=== PATIENT | female | born 1980 | race Caucasian/White ===

== ENCOUNTER 2019-12-03 19:07 | Emergency (ER) | payer MEDICAID ==
[2019-12-03 19:20] VITALS: BP 110/79
[2019-12-03 19:53] LABS: BASOPHILS % (AUTO) 0.4 %; EOSINOPHILS # (AUTO) 0.1 10^3/uL (0.0-0.7); EOSINOPHILS % (AUTO) 1.2 %; HGB - HEMOGLOBIN 13.7 g/dL (12.0-16.0); LYMPHOCYTES # (AUTO) 4.2 10^3/uL (1.5-3.5); LYMPHOCYTES % (AUTO) 42.4 %; MEAN CORPUSCULAR HEMOGLOBIN 29.7 pg (27.0-31.0); MEAN CORPUSCULAR HGB CONC 33.9 g/dL (32.0-36.0); MEAN CORPUSCULAR VOLUME 87.4 fL (81.0-99.0); MEAN PLATELET VOLUME 9.5 fL (7.9-10.8); MONOCYTES # (AUTO) 0.7 10^3/uL (0.0-1.0); MONOCYTES % (AUTO) 7.1 %; NEUTROPHILS # (AUTO) 4.8 10^3/uL (1.5-6.6); NEUTROPHILS % (AUTO) 48.6 %; PLT - PLATELET COUNT 398 10^3/uL (130-450); RED BLOOD COUNT 4.62 10^6/uL (4.20-5.40); RED CELL DISTRIBUTION WIDTH 13.7 % (12.0-15.0); WHITE BLOOD COUNT 9.8 x10^3/uL (4.8-10.8)
[2019-12-03 20:03] LABS: BILIRUBIN,URINE NEGATIVE (NEGATIVE); GLUCOSE, URINE (UA) NEGATIVE (NEGATIVE); KETONES,URINE (UA) TRACE mg/dL (NEGATIVE); LEUKOCYTE ESTERASE, URINE NEGATIVE (NEGATIVE); NITRITE,URINE NEGATIVE (NEGATIVE); OCCULT BLOOD,URINE MODERATE (NEGATIVE); PH,URINE 6.5 PH (5.0-7.5); PROTEIN,URINE NEGATIVE (NEGATIVE); UROBILINOGEN,URINE 1 (NORMAL) E.U./dL (NORMAL)
[2019-12-03 20:06] LABS: CLARITY,URINE SL. CLOUDY (CLEAR); HCG UR QUAL NEGATIVE
[2019-12-03 20:13] LABS: ALBUMIN 4.5 g/dL (3.2-5.5); ALBUMIN/GLOBULIN RATIO 1.6 (1.0-2.2); BILIRUBIN,TOTAL 0.7 mg/dL (0.2-1.0); CALCIUM 9.7 mg/dL (8.5-10.3); CREATININE 0.6 mg/dL (0.4-1.0); TOTAL PROTEIN 7.3 g/dL (6.7-8.2)
[2019-12-03 20:20] LABS: BACTERIA,URINE Few /HPF (None Seen); SQUAMOUS EPITHELIAL CELL,UR MANY Squamous (<= Few)
--- NOTE | 2019-12-03 20:22 | ED Physician Documentation ---
History of Present Illness - Stated complaint Stated Complaint: FEMALE - Chief complaint Chief Complaint: Abd Pain - History obtained from History obtained from: Patient - History of Present Illness Timing: Today Pain level max: 0 Pain level now: 0 - Additonal information Additional information: 39-year-old female states that she is on her menses states that when she pulled out her tampon a large piece of tissue/clot came with that. She states that the bleeding has decreased since that time. Otherwise asymptomatic. Denies being . Nothing makes it better or worse. Review of Systems Constitutional: denies: Fever, Chills Respiratory: denies: Cough GI: denies: Abdominal Pain, Nausea, Vomiting, Diarrhea : denies: Dysuria, Frequency, Hesitancy Skin: denies: Rash PD PAST MEDICAL HISTORY - Past Medical History Past Medical History: No - Past Surgical History Past Surgical History: No - Allergies Allergies/Adverse Reactions: Allergies Allergy/AdvReac Type Severity Reaction Status Date / Time No Known Drug Allergies Allergy Verified 12/03/19 19:20 - Living Situation Living Situation: reports: With family Living Arrangement: reports: At home - Family History Family history: reports: Non contributory PD ED PE NORMAL - Vitals Vital signs reviewed: Yes - General General: Alert and oriented X 3, No acute distress - HEENT HEENT: Moist mucous membranes - Neck Neck: Supple, no meningeal sign - Cardiac Cardiac: RRR - Respiratory Respiratory: No respiratory distress, Clear bilaterally - Abdomen Abdomen: Soft, Non tender, Non distended - Female Female : Pt declined - Derm Derm: Warm and dry - Neuro Neuro: Alert and oriented X 3 - Psych Psych: Normal mood, Normal affect Results - Vitals Vitals: Vital Signs - 24 hr 12/03/19 19:13 Temperature 36.6 C Heart Rate 83 Respiratory 18 Rate Blood Pressure 110/79 O2 Saturation 99 Oxygen O2 Source Room air - Labs Labs: Laboratory Tests 12/03/19 12/03/19 12/03/19 19:48 19:48 19:57 WBC 9.8 RBC 4.62 Hgb 13.7 Hct 40.4 MCV 87.4 MCH 29.7 MCHC 33.9 RDW 13.7 Plt Count 398 MPV 9.5 Neut # (Auto) 4.8 Lymph # (Auto) 4.2 H [place] # (Auto) 0.7 Eos # (Auto) 0.1 Baso # (Auto) 0.0 Absolute Nucleated RBC 0.00 Nucleated RBC % 0.0 Sodium 139 Potassium 3.7 Chloride 100 L Carbon Dioxide 28 Anion Gap 11.0 BUN 15 Creatinine 0.6 Estimated GFR (MDRD) 112 Glucose 92 Calcium 9.7 Total Bilirubin 0.7 AST 15 ALT 16 Alkaline Phosphatase 66 Total Protein 7.3 Albumin 4.5 Globulin 2.8 Albumin/Globulin Ratio 1.6 Lipase 27 Urine Color YELLOW Urine Clarity SL. CLOUDY Urine pH 6.5 Ur Specific [place] 1.025 Urine Protein NEGATIVE Urine Glucose (UA) NEGATIVE Urine Ketones TRACE Urine Occult Blood MODERATE H Urine Nitrite NEGATIVE Urine Bilirubin NEGATIVE Urine Urobilinogen 1 (NORMAL) Ur Leukocyte Esterase NEGATIVE Urine RBC 6-10 H Urine WBC 4-5 Ur Squamous Epith Cells MANY Squamous H Urine Bacteria Few Ur Microscopic Review INDICATED Urine Culture Comments NOT INDICATED Urine HCG, Qual NEGATIVE PD MEDICAL DECISION MAKING - ED course Complexity details: considered differential, d/w patient ED course: Patient with what sounds like a decidual cast tonight. Declines a pelvic exam. Bleeding resolved. Images of a decidual cast were shown to the patient and she states that that is what it looked like. We will have her follow-up with her doctor for further care. Patient counseled regarding signs and symptoms for which I believe and urgent re-evaluation would be necessary. Patient with good understanding of and agreement to plan and is comfortable going home at this time This document was made in part using voice recognition software. While efforts are made to proofread this document, sound alike and grammatical errors may occur. Departure - Departure Disposition: 01 Home, Self Care Clinical Impression: Decidual cast Condition: Good Instructions: ED Bleeding Menstrual Heavy Follow-Up: your,doctor as needed. [Other] Comments: Return if you worsen. Follow up with your doctor for further care. Discharge Date/Time: 12/03/19 20:43
== END 2019-12-03 20:43 | disposition home or self-care (01) ==
LOC: ED 19:07
DX: N92.0 Excessive and frequent menstruation with regular cycle (principal)
CPT/HCPCS: 36415; 80053; 81001; 81003; 81025; 83690; 85025; 87086; 99282; 99283